=== PATIENT | male | born 1930 | race Caucasian/White ===

== ENCOUNTER 2017-07-13 05:34 | Emergency (ER) | payer MEDICARE, OTHER ==
--- NOTE | 2017-07-13 05:54 | ERNOTE ---
ENT HPI Date of Service: 07/13/17 Time Seen by Provider: 07/13/17 05:48 Exam Limitations: hard of hearing, dementia - Immun/Allergies/Home Medications Immunizations: IMMUNIZATION HX Immunizations Up to Date Yes History of Influenza Vaccine Yes Hx Pneumococcal Vaccination Yes Allergies/Adverse Reactions: Allergies Allergy/AdvReac Type Severity Reaction Status Date / Time Penicillins Allergy Intermediate Hives Verified 07/13/17 05:43 Home Medications: HOME MEDICATIONS Lovastatin 40 mg PO DAILY 09/11/13 [Last Taken 09/10/13 08:00] Acetaminophen [Tylenol] 650 mg PO QID PRN #0 tablet 09/15/13 [Last Taken Unknown ] Aspirin [Aspirin Enteric Coated] 81 mg PO DAILY #0 tablet. 09/15/13 [Last Taken Unknown] Clopidogrel Bisulfate [Plavix] 75 mg PO DAILY #0 tablet 09/15/13 [Last Taken Unknown] Cyanocobalamin [Vitamin B-12] 1,000 mcg PO DAILY #0 tablet 09/15/13 [Last Taken Unknown] Eccles-3 Fatty Acids/Fish Oil [Fish Oil 1,000 mg Capsule] 1 each PO DAILY [Last Taken Unknown] Donepezil HCl [Aricept] 10 mg PO DAILY 07/13/17 [Last Taken Unknown] Escitalopram Oxalate [Lexapro] 20 mg PO DAILY 07/13/17 [Last Taken Unknown] Memantine HCl [Namenda] 10 mg PO BID 07/13/17 [Last Taken Unknown] Multivitamin [Multivitamins] 1 each PO DAILY 07/13/17 [Last Taken Unknown] - History of Present Illness Narrative: This is an [age]-year-old gentleman with a history of dementia and strokes who is on Coumadin who comes to the emergency department after falling and striking the bridge of his nose. His who arrived later states that she was taking him to the bathroom when he fell. She was in front of him turning on the light. He struck the bridge of his nose on the walker. He did not lose consciousness. She was able to get a mop sitting up but not up off the ground. The patient sustained a laceration on his nose. She could not get it stopped bleeding. She does not know when his last Coumadin check was. The patient has been acting normally since then per the . The patient has no other complaints. Review of Systems - Narrative Narrative: Difficult to obtain comprehensive review of systems due to the patient's being extremely hard of hearing and cognitive dysfunction. I did ask him if he had chest pain or shortness of breath and he said no. He has no numbness or tingling. He is complaining of a bit of discomfort in his neck. He was not complaining of any pain in his neck for the first hour. - Review of Systems Constitutional: Present: no symptoms reported EYE: Present: no symptoms reported ENT: Present: other - laceration as described Respiratory: Present: no symptoms reported Cardiology: Present: no symptoms reported Gastrointestinal/Abdominal: Present: no symptoms reported Genitourinary: Present: no symptoms reported Musculoskeletal: Present: no symptoms reported Skin: Present: no symptoms reported Neurological: Present: no symptoms reported Endocrine: Present: no symptoms reported Hematologic/Lymphatic: Present: no symptoms reported Psych: Present: no symptoms reported All Other Systems: All systems neg except as marked - Patient's Past Medical History Patient History - Medical: No pertinent hx Patient History - Cardiac/Respiratory: CVA/Stroke, Hyperlipidemia, Pneumonia Patient History - Cancer: No Hx of Cancer Patient History - Surgical Procedures: Noncontributory Patient History - Other: None - Social History Living Situations: home Psych History: No pertinent hx Smoking Status: Former smoker Have you smoked in the past 12 months: No Do you dip or chew tobacco: No - Immunizations Immunizations Up to Date: Yes Hx Pneumococcal Vaccination: Yes History of Influenza Vaccine: Yes Physical Exam - Physical Exam General Appearance: Present: wd/wn, alert, no apparent distress Head Exam: Present: normal inspection, other - the patient has a 2-1/2 cm, 2.6 cm laceration from the midpoint on the dorsum of the nose proximally to the forehead just superior to a line drawn between the canthus. It is a simple laceration. Eye Exam: Normal inspection: bilateral, PERRL: bilateral, EOMI: bilateral Ears, Nose, Throat: Present: normal ENT inspection, normal pharynx Neck: Present: normal inspection, other - patient has some mild paraspinal tenderness. No midline tenderness. Respiratory: Present: no respiratory distress, chest nontender, lungs clear Cardiovascular/Chest: Present: regular rate, rhythm, no murmur Gastrointestinal/Abdominal: Present: nontender, nondistended, soft Back Exam: Present: normal inspection, normal range of motion Extremity Exam: Present: normal inspection, non-tender, normal range of motion, no edema Neurological Exam: Present: alert, normal mood/affect, no motor/sensory deficits , other - patient is pleasantly confused. Recognizes his family. Asks the same questions multiple times. Per his this is his baseline. Skin Exam: Present: normal color, warm/dry Lymphatic Exam: Present: no adenopathy ED Progress - Vital Signs Vital Signs: Vital Signs 07/13/17 05:35 Temperature 36.1 C L Pulse Rate 57 L Respiratory 18 Rate Blood Pressure 154/82 O2 Sat by Pulse 97 Oximetry - CT/Ultrasound CT/Ultrasound Narrative: CT of the head shows significant ischemic disease. No signs of intraoral or extra-axial fluid collection. CT neck: anterior arch of C1 fracture - Progress/Reassessment Chief Complaint: Facial Injury Procedures None Face Comment: Laceration was repaired immediately after patient arrived to the department. The wound was anesthetized with 1% lidocaine with epinephrine. 2 mL was used. Then with gentle pressure and traction on the edges of the wound was sutured using simple interrupted sutures. 5-0 nylon. Total number of 8. Patient tolerated procedure well. Blood loss was minimal. Bleeding is stopped afterwards. The wound was cleansed with Betadine. Explored with the edges of the forceps. There is no subcutaneous tissue this point it is down to the bridge of the nose. No bony fractures or fragments were noted. Plan - Plan Plan: The patient did sustain a laceration to his face. It was concerned initially that he was on Coumadin however there is no list of Coumadin on his prescriptions. The patient's bleeding certainly does not seem like somebody who has Coumadin. I will check a Coumadin level. We'll check a CAT scan of the head. He had no facial instability. CT of the facial bones is not necessary. Extraocular muscles are intact. Pupils are normal. We'll get a CAT scan of the neck is well. The patient has a C1 anterior arch fracture. It's been placed in a cervical collar. I spoke with Dr. Chew in the emergency department at [facility]. He is graciously agreed to accept the patient. The patient remains neurologically normal Departure Clinical Impression: Fall Qualifiers: Encounter type: initial encounter Qualified Code(s): W19.XXXA - Unspecified fall, initial encounter Nasal laceration Qualifiers: Encounter type: initial encounter Qualified Code(s): S01.21XA - Laceration without foreign body of nose, initial encounter C1 cervical fracture Qualifiers: Encounter type: initial encounter Fracture type: closed Fracture morphology: unspecified fracture morphology Fracture alignment: nondisplaced Qualified Code( s): S12.001A - Unspecified nondisplaced fracture of first cervical vertebra, initial encounter for closed fracture - Departure Disposition: [facility] Condition: Fair Instructions: Laceration Care, Adult, [id number] Referrals: Aruna Akhtar MD [Primary Care Provider] -
[2017-07-13 06:17] LABS: INR 1.06 INR (0.90-1.10)
[2017-07-13 08:21] VITALS: BP 139/77
== END 2017-07-13 08:18 | disposition short-term general hospital (02) ==
LOC: ER 05:34
PROC: 09QKXZZ Repair Nasal Mucosa and Soft Tissue, External Approach (ICD-10-PCS; principal; 2017-07-13)
DX: S01.21XA Laceration without foreign body of nose, initial encounter (principal); S12.001A Unspecified nondisplaced fracture of first cervical vertebra, initial encounter for closed fracture; W01.198A Fall on same level from slipping, tripping and stumbling with subsequent striking against other object, initial encounter; Z91.81 History of falling; Y93.9 Activity, unspecified; Y92.009 Unspecified place in unspecified non-institutional (private) residence as the place of occurrence of the external cause; Z86.73 Personal history of transient ischemic attack (TIA), and cerebral infarction without residual deficits; E78.5 Hyperlipidemia, unspecified